=== PATIENT | female | born 1945 | race Caucasian/White ===

== ENCOUNTER → 2019-04-02 | Outpatient (REF) | payer MEDICARE, BC, OTHER | LOC: M LAB REF 17:32 | PROVIDERS: ATTEND Nurse Practitioner Family | DX: R93.5 Abnormal findings on diagnostic imaging of other abdominal regions, including retroperitoneum (principal); R19.7 Diarrhea, unspecified; K57.30 Diverticulosis of large intestine without perforation or abscess without bleeding ==

== ENCOUNTER → 2021-08-01 | Outpatient (REF) | payer MEDICARE, BC, OTHER ==
[2021-08-01 13:37] LABS: C REACTIVE PROTEIN QUANTITATIV < 0.30 MG/DL (0.00-0.30); RHEUMATOID FACTOR QUANT < 10.0 IU/ML (<15.0)
== END ==
LOC: M LAB REF 12:36
PROVIDERS: ATTEND Nurse Practitioner Adult Health
DX: R21 Rash and other nonspecific skin eruption (principal)

== ENCOUNTER → 2021-09-19 | Outpatient (REF) | payer MEDICARE, BC, OTHER | LOC: M LAB REF 16:17 | PROVIDERS: ATTEND Nurse Practitioner Adult Health | DX: E03.9 Hypothyroidism, unspecified (principal) ==

== ENCOUNTER → 2022-06-18 | Outpatient (CLI) | payer MEDICARE, BC | LOC: M WUC 14:14 | PROVIDERS: ATTEND Nurse Practitioner Adult Health | DX: M25.551 Pain in right hip (principal) ==

== ENCOUNTER → 2023-01-02 | Outpatient (CLI) | payer MEDICARE, BC | LOC: M WUC 11:35 | PROVIDERS: ATTEND Nurse Practitioner Adult Health | DX: M79.672 Pain in left foot (principal) ==

== ENCOUNTER → 2023-11-04 | Outpatient (CLI) | payer MEDICARE, BC | LOC: M CARPUL 09:33 | PROVIDERS: ATTEND Internal Medicine Critical Care Medicine | DX: R06.00 Dyspnea, unspecified (principal) ==

== ENCOUNTER → 2024-01-20 | Outpatient (REF) | payer MEDICARE, BC | LOC: M LAB REF 12:28 | PROVIDERS: ATTEND Internal Medicine | DX: N39.0 Urinary tract infection, site not specified (principal); M79.672 Pain in left foot ==

== ENCOUNTER → 2024-02-19 | Outpatient (CLI) | payer MEDICARE, BC | LOC: M RAD 14:04 | PROVIDERS: ATTEND Internal Medicine | DX: R05.3 Chronic cough (principal); K76.89 Other specified diseases of liver ==

== ENCOUNTER → 2024-04-13 | Outpatient (CLI) | payer MEDICARE, BC | LOC: M RAD 09:31 | PROVIDERS: ATTEND Internal Medicine | DX: Q44.6 Cystic disease of liver (principal); Z90.49 Acquired absence of other specified parts of digestive tract ==

== ENCOUNTER → 2024-07-09 | Outpatient (REF) | payer MEDICARE, BC | LOC: M LAB REF 16:30 | PROVIDERS: ATTEND Nurse Practitioner Adult Health | DX: N39.0 Urinary tract infection, site not specified (principal) ==

== ENCOUNTER → 2025-03-03 | Outpatient (CLI) | payer MEDICARE, BC | LOC: M WUC 15:15 | PROVIDERS: ATTEND Nurse Practitioner Adult Health | DX: M25.551 Pain in right hip (principal); M25.561 Pain in right knee; M47.816 Spondylosis without myelopathy or radiculopathy, lumbar region; M25.78 Osteophyte, vertebrae; M17.11 Unilateral primary osteoarthritis, right knee ==